=== PATIENT | male | born 1960 | race Caucasian/White ===

== ENCOUNTER 2017-11-01 09:16 | Outpatient (CLI) | payer OTHER ==
--- NOTE | 2017-11-01 15:19 | NM ---
NUCLEAR MEDICINE [facility] BRAIN SCAN: Date: 11/01/17 HISTORY: 57-year-old male with Parkinson's disease. TECHNIQUE: Pretreatment with 130 mg of potassium iodide PO. 4.4 mCi of I-123 Ioflupane injected IV. Axial SPECT images of brain obtained. FINDINGS: There is uptake in the anterior portions of the bilateral corpus striatum. There is absence of radiop harmaceutical uptake in the posterior aspects of the putamen bilaterally. IMPRESSION: Positive for Parkinson's disease. POS: PRABHJOT
== END 2017-11-01 09:17 | disposition home or self-care (01) ==
LOC: NM 09:16
PROVIDERS: ATTEND Psychiatry & Neurology Neurology
DX: G20 Parkinson's disease (principal)
CPT/HCPCS: 78607; A9584

== ENCOUNTER 2018-08-08 06:17 | Day surgery (SDC) | payer OTHER ==
[2018-08-07 13:07] VITALS: BMI 22.4
--- NOTE | 2018-08-07 17:22 | HP ---
HISTORY OF PRESENT ILLNESS: Mr. Bhardwaj is known to us for previous evaluation of severe intrascapular and posterior neck pain with tenderness over the T1 prominence. At that time, we had diagnosed him with Rafi-rail operations controller fracture and recommended excision of this fracture piece. He, at that time, then sought 2 other surgical opinions and was told that there was no surgical options for his particular issue. They also said there was no fracture identified on this scan. I again sat down today and showed him this fracture on both an MRI from [facility] that he had recently, as well as CT that we performed previously. He has reached a point now where he would like to move forward with surgery if possible. PAST MEDICAL HISTORY: Significant for hypercholesterolemia, anxiety, neuropathy, restless legs syndrome. CURRENT MEDICATIONS: 1. Cymbalta. 2. Temazepam. 3. Ropinirole. 4. Primlev. 5. Lyrica. 6. Eszopiclone. 7. Duloxetine. 8. Duexis. 9. Diazepam. 10. Carisoprodol. 11. Atorvastatin. ALLERGIES: NO KNOWN DRUG ALLERGIES. PAST SURGICAL HISTORY: Incision and drainage of infected cat bite on the hand. PHYSICAL EXAMINATION: GENERAL: The patient is alert and oriented x3. MUSCULOSKELETAL: He is using a walker with stooped posture secondary to the pain that he feels between his shoulder blades. He is tender to palpation along the direct axial spine, particularly around C7-T1, but other than that, his bilateral upper and bilateral lower extremity exams reveal full strength bilaterally and all movements of all 4 extremities. Reflexes equal and present bilaterally at the biceps and patella. ASSESSMENT: Rafi-rail operations controller fracture PLAN: Dr. Melissa met with the patient, reviewed imaging, advocated for a T1 spinous process resection. He explained to the patient the risks, benefits, and alternatives to the procedure. The patient expressed understanding and elected to move forward with surgery as discussed. I do believe the patient is mentally competent capable of making medical decisions for himself. We will move forward with surgery as planned. Job ID: [id number]
[2018-08-08] MEDS ORDERED: Bupivacaine HCl 0.5%/Epinephrine 1:200,000/PF 30 ml Vial ONE (07:32)
--- NOTE | 2018-08-08 08:55 | PRG ---
DATE OF SERVICE: 08/08/2018 Mr. Bhardwaj is a 57-year-old male evaluated in our clinic for an opinion regarding mid cervical neck pain. He has had 2 other opinions regarding his pain. He denies any pain, which radiates into the arms or which would be consistent with cervical radiculopathy. I have talked with him on the phone, but today is the first chance I have had to meet him and examine him and review with him imaging as well as diagnosis and planned procedure. He has a Rafi-Blind Hanger fracture at T1, which is evident both on his MRI scan and a CT scan that was performed. He has no other significant pathology that in my view would account for the type of pain that he has. The proposed surgical procedure today will be resection of the spinous process tip of T1 in an effort to give him relief of this area. I discussed with him the risks, benefits, and alternatives to the procedure. I answered all of their questions. He has provided an informed consent for the procedure. Job ID: [id number]
[2018-08-08] MEDS ORDERED: Fentanyl 100 MCG/2 ML VIAL ONE ×4 (08:59→11:31)
[2018-08-08] MEDS ORDERED: Lidocaine 1% PF 5 ML VIAL ONE (09:54)
[2018-08-08] MEDS ORDERED: Succinylcholine Chloride 20 MG/ML 10 ml SYRINGE FS ONE (09:54)
[2018-08-08] MEDS ORDERED: PROPOFOL 200 MG/20 ML VIAL ONE (09:54)
[2018-08-08] MEDS ORDERED: Ondansetron PF 4 MG/2 ML Vial ONE (09:54)
--- NOTE | 2018-08-08 13:01 | OP ---
DATE OF PROCEDURE: 08/08/2018 TIRE ADJUSTER: Rivera Romano PA-C INDICATION: Pain. DIAGNOSIS: Rafi-Rail Track Layer's fracture, T1. PROCEDURE PERFORMED: Resection of fracture. ANESTHESIA: General. DESCRIPTION OF PROCEDURE: The patient was brought into the operating room and placed under general anesthesia. He was flipped from a supine to prone position on the operating room table. A linear incision was planned over the T1 region. After prepping and draping and after an appropriate preoperative pause, the incision was created. The soft tissues were swept away from midline. An AP C-arm image was obtained to confirm the appropriate location. At the T1 area, there was a hypermobile component of the spinous process consistent with the patient's Rafi-Rail Track Layer's fractures identified on both MRI and CT scan. This was resected as was the pseudarthrosis material within the fracture site. The wound was irrigated. Hemostasis was maintained throughout. The wound was then closed in anatomic layers and a pressure dressing was applied. There were no known procedural complications. Job ID: [id number]
== END 2018-08-08 13:45 | disposition home or self-care (01) ==
LOC: SDC 06:17
PROVIDERS: ATTEND Neurological Surgery
PROC: 0PB40ZZ Excision of Thoracic Vertebra, Open Approach (ICD-10-PCS; principal; 2018-08-08)
DX: S22.018A Other fracture of first thoracic vertebra, initial encounter for closed fracture (principal); G25.81 Restless legs syndrome; E78.00 Pure hypercholesterolemia, unspecified; F41.9 Anxiety disorder, unspecified; G62.9 Polyneuropathy, unspecified; Z79.899 Other long term (current) drug therapy
CPT/HCPCS: 76000; J0670; J0690; J3010

== ENCOUNTER 2019-02-01 08:03 | Day surgery (SDC) | payer OTHER ==
--- NOTE | 2019-01-31 16:49 | HP ---
HISTORY OF PRESENT ILLNESS: Mr. Bhardwaj is a pleasant 58-year-old man, known to us for relatively recent resection of Rafi-dye line operator fracture and has done very, very well with this. Unfortunately now, he is presenting some with a C4 pattern of pain bilaterally that affects the right side more than the left. He has an MRI from [facility] from January of last year, which shows severe foraminal stenosis at C3-4, they consider may account for this. He did have injections therapy, medications as well as other forms of conservative treatment at home, but at this point it feels like all of it has provided no significant relief at least not lasting and would like to discuss possible surgical intervention. PAST MEDICAL HISTORY: Hypercholesterolemia, anxiety, neuropathy, restless legs syndrome. CURRENT MEDICATIONS: 1. Cymbalta. 2. Temazepam. 3. Ropinirole. 4. Primlev. 5. Lyrica. 6. Eszopiclone. 7. Duloxetine. 8. Duexis. 9. Diazepam. 10. Carisoprodol. 11. Atorvastatin. ALLERGIES: NO KNOWN DRUG ALLERGIES. PAST SURGICAL HISTORY: Incision and drainage of infected cat bite to the hand and Rafi-dye line operator fracture resection. PHYSICAL EXAMINATION: GENERAL: The patient is alert and oriented x3. NEUROLOGIC: Gait is normal. No ataxia. Upper extremity motor exam is normal. ASSESSMENT: Cervical radiculopathy. PLAN: Dr. Colmenares met with the patient, reviewed imaging, and advocated for C3-C4 ACDF. He explained to the patient the risks, benefits, and alternatives to the procedure. The patient expressed understanding and elected to move forward with surgery as discussed. I do believe the patient is mentally competent and capable of making medical decisions for himself. We will move forward with surgery as planned. Job ID: [id number]
[2019-02-01] MEDS ORDERED: Thrombin 5000 UNITS/5 ML VIAL ONE (08:39)
[2019-02-01] MEDS ORDERED: Fentanyl 100 MCG/2 ML VIAL ONE ×3 (09:20→11:22)
--- NOTE | 2019-02-01 11:44 | OP ---
DATE OF PROCEDURE: 02/01/2019 CAREER SERVICES ASSISTANT: Rivera Romano PA-C INDICATION: Pain. DIAGNOSIS: Cervical radiculopathy. PROCEDURE PERFORMED: Anterior cervical diskectomy and fusion C3-C4. ANESTHESIA: General. DESCRIPTION OF PROCEDURE: The patient was brought into the operating room and placed under general anesthesia. He was placed on the table in a supine position. A transverse incision was planned over the lateral aspect of the neck on the right. After prepping and draping and after an appropriate perioperative pause, the incision was created. The underlying platysma muscle was identified and incised. A blunt tissue plane anterior to the sternocleidomastoid muscle was used to gain access to the prevertebral space. Self-retaining retractors were placed in the wound for optimal exposure. After confirming the appropriate level with C-arm fluoroscopy, an annulotomy was performed in the C3-C4 disk space. All disk material as well as anterior and posterior osteophytes were removed. After decompressing that segment, a 6-mm lordotic PEEK cage packed with allograft and autograft material was placed within the interbody space. An anterior cervical plate was then fashioned to the front of spine and secured with a total of 4 fixed screws. Midline and lateral structures were inspected and found to be free from significant trauma. The wound was irrigated. Hemostasis was maintained throughout. The wound was then closed in anatomic layers and a pressure dressing was applied. There were no known procedural complications. Job ID: [id number]
== END 2019-02-01 14:30 | disposition home or self-care (01) ==
LOC: SDC 08:03
PROVIDERS: ATTEND Neurological Surgery
PROC: 0RT30ZZ Resection of Cervical Vertebral Disc, Open Approach (ICD-10-PCS; principal; 2019-02-01)
PROC: 0RG10A0 Fusion of Cervical Vertebral Joint with Interbody Fusion Device, Anterior Approach, Anterior Column, Open Approach (ICD-10-PCS; principal; 2019-02-01)
DX: M54.12 Radiculopathy, cervical region (principal); M48.02 Spinal stenosis, cervical region; E78.00 Pure hypercholesterolemia, unspecified; F41.9 Anxiety disorder, unspecified; G25.81 Restless legs syndrome; G62.9 Polyneuropathy, unspecified; Z79.899 Other long term (current) drug therapy; Z88.8 Allergy status to other drugs, medicaments and biological substances
CPT/HCPCS: 76000; C1713; C1776; J0690; J3010

== ENCOUNTER 2019-08-02 13:12 | Outpatient (CLI) | payer OTHER ==
--- NOTE | 2019-08-02 13:50 | RAD ---
EXAM: XR Cerv Sp Ap Lat STANDARD PROVIDED CLINICAL HISTORY: Neck pain for several years. Cervical radiculopathy. History of prior cervical spine surgery. Patient continues to have severe neck pain. COMPARISON: None FINDINGS: C1 to the C6-7 level are seen on the lateral view. The cervicothoracic junction is obscured due to ov erlying osseous structures. Vertebral body heights appear to be within normal limits. Mild degenerative changes are seen at the C5-6 and C6-7 levels with narrowing of the intervertebral disc s paces and osteophyte formation. Postoperative changes related to anterior cervical fusion are seen at the C3-4 level with anterior plate and screws transfixing this level. Intradiscal prosthesis is pr esent. No hardware complication is appreciated. Prevertebral soft tissues are within normal limits. IMPRESSION: Nonvisualization of the cervicothoracic junction. Degenerative and postoperative changes cervical spine.
== END 2019-08-02 13:13 | disposition home or self-care (01) ==
LOC: SCSRAD 13:12
PROVIDERS: ATTEND Emergency Medicine
DX: M47.22 Other spondylosis with radiculopathy, cervical region (principal); Z98.890 Other specified postprocedural states
CPT/HCPCS: 72040

== ENCOUNTER 2019-08-14 09:56 | Outpatient (CLI) | payer OTHER ==
[~2019-08-14 09:56] MED LIST: Magnevist 469MG/ML 20 ML VIAL ONE
--- NOTE | 2019-08-14 11:32 | MRI ---
CERVICAL SPINE MRI WITH AND WITHOUT CONTRAST: HISTORY: Neck pain. Cervical radiculopathy. Previous cervical fusion. Right arm pain and numbness. FINDINGS: Anterior fusion plate with transvertebral body screw at C3 and C4. Associated metallic susceptibly ar tifact. With the exception is C3 and C4, appropriate T1 marrow signal intensity of the cervical vertebrae. Cervical spine vertebral body height is maintained. No fracture. No significant STIR hyper intensity to suggest vertebral body edema or ligamentous injury. Postcontrast images do not demonstrate abnormal enhancement with regards to the vertebral bodies. Visualized brain parenchyma, cervicomedullary junction, cervical cord and the upper thoracic cord hav e a normal size and signal intensity. No abnormal enhancement. There is no abnormal T2 or STIR hyperintensity in the visualized spinal cord. No cord expansion. No c ord malacia. No enhancing lesions. C2-C3: No significant central canal stenosis or significant neural foraminal narrowing. C3-C4: No significant central canal stenosis or significant neural foraminal narrowing. C4-C5: No significant central canal stenosis or significant neural foraminal narrowing. Minimal centr al disc herniation is present. C5-C6: Broad-based disc bulge abuts the thecal sac. No significant central canal stenosis. Moderate b ilateral foraminal narrowing predominantly due to uncovertebral hypertrophy. C6-C7: Broad-based disc bulge abuts the thecal sac. No significant central canal stenosis. Mild bilat eral foraminal narrowing due to uncovertebral hypertrophy. C7-T1: No significant central canal stenosis or significant neural foraminal narrowing. IMPRESSION: 1. Cervical fusion from C3 through C4. No MR evidence of a complicating process with regards to the C 3-C4 fusion. 2. No abnormal signal intensity visualized brain parenchyma and spinal cord. No abnormal signal inten sity of the visualized osseous structures. 3. Broad-based disc bulge at C5-C6 and C6-C7, without significant central canal stenosis. 4. Moderate bilateral neural foraminal narrowing at C5-C6. Mild bilateral neural foraminal narrowing at C6-C7. Transcribed Date/Time: 08/14/2019 12:58 PM
== END 2019-08-14 09:57 | disposition home or self-care (01) ==
LOC: TBSIIMAG 09:56
PROVIDERS: ATTEND Neurological Surgery
DX: M50.122 Cervical disc disorder at C5-C6 level with radiculopathy (principal); M48.02 Spinal stenosis, cervical region; Z98.1 Arthrodesis status
CPT/HCPCS: 72156; A9579

== ENCOUNTER 2019-09-30 10:54 | Outpatient (CLI) | payer OTHER ==
[2019-10-01 13:49] LABS: SARS-CoV-2 MS2 Positive; SARS-CoV-2 N Gene Negative; SARS-CoV-2 S Gene Negative; SARS-CoV-2 orf1ab Negative
== END 2019-09-30 10:55 | disposition home or self-care (01) ==
LOC: LABBT 10:54
PROVIDERS: ATTEND Neurological Surgery
DX: Z01.812 Encounter for preprocedural laboratory examination (principal); Z11.59 Encounter for screening for other viral diseases; M54.12 Radiculopathy, cervical region
CPT/HCPCS: 87635; U0003

== ENCOUNTER 2019-10-02 07:11 | Day surgery (SDC) | payer OTHER ==
--- NOTE | 2019-10-01 15:47 | HP ---
HISTORY OF PRESENT ILLNESS: Mr. Bhardwaj is known to us for 2 prior neck surgeries, 1 being the excision of the spinous process fracture and the other being ACDF. He returns now with recurrent symptoms of what he describes as a cramping neck and shoulder discomfort, that seems to best fit a C5 radiculopathy. This is potentially adjacent to his prior ACDF, which was at C3-C4. A new MRI reveals likely significant foraminal stenosis at C4-C5 adjacent to level immediately caudal to his prior ACDF at C3-C4, likely in place of current symptoms. He has treated this in the past with injections with a little help and hopes to move forward more with surgical intervention given his success in the past. PAST MEDICAL HISTORY: Significant for: 1. Hypercholesterolemia. 2. Anxiety. 3. Neuropathy. 4. Restless legs syndrome. 5. Neck pain. CURRENT MEDICATIONS: 1. Cymbalta. 2. Temazepam. 3. Ropinirole. 4. Primlev. 5. Lyrica. 6. Eszopiclone. 7. Duloxetine. 8. Duexis. 9. Diazepam. 10. Carisoprodol. 11. Atorvastatin. ALLERGIES: NO KNOWN DRUG ALLERGIES. PAST SURGICAL HISTORY: 1. Incision and drainage of cat bite in the hand. 2. Rafi-industrial plant custodian fracture excision. 3. ACDF. PHYSICAL EXAMINATION: Deferred for COVID-19, telehealth visit. ASSESSMENT: Cervical radiculopathy. PLAN: Dr. Melissa met with the patient, reviewed imaging, and advocated for exploration of fusion, reoperation, removal of hardware from C3-C4 with extension to C4-C5 and ACDF there. He explained to the patient risks, benefits, of alternatives to the procedure. The patient expressed understanding and elected to move forward with surgery as discussed. I do believe that the patient is mentally competent and capable of making medical decisions for himself. We will move forward with surgery as planned. Job ID: [id number]
[2019-10-02] MEDS ORDERED: Thrombin 5000 UNITS/5 ML VIAL ONE (09:34)
[2019-10-02] MEDS ORDERED: Fentanyl 100 MCG/2 ML VIAL ONE ×4 (09:45→11:57)
[2019-10-02] MEDS ORDERED: Lidocaine 1% PF 5 ML VIAL ONE (11:21)
[2019-10-02] MEDS ORDERED: EPHEDRINE 25 MG/5 ML SYRINGE ONE (11:21)
[2019-10-02] MEDS ORDERED: Rocuronium Bromide 10 MG/ML (10ML VIAL) ONE (11:21)
[2019-10-02] MEDS ORDERED: Glycopyrrolate 0.2 MG/ML 5 ML SYRINGE ONE (11:21)
[2019-10-02] MEDS ORDERED: Atropine Sulfate 0.4 mg/1 ml Vial ONE (11:21)
[2019-10-02] MEDS ORDERED: PROPOFOL 200 MG/20 ML VIAL ONE (11:21)
[2019-10-02] MEDS ORDERED: PHENYLEPHRINE-NS 100 MCG/ML 10 ML SYRINGE ONE (11:21)
[2019-10-02] MEDS ORDERED: Dexamethasone 20 MG/5 ML VIAL ONE (11:21)
[2019-10-02] MEDS ORDERED: Ondansetron PF 4 MG/2 ML Vial ONE (11:21)
[2019-10-02] MEDS ORDERED: HYDROcodone/Acetaminophen 5/325 mg Tablet ONE (11:44)
[2019-10-02] MEDS ORDERED: Tamsulosin HCl 0.4 MG CAP ONE (11:45)
[2019-10-02] MEDS ORDERED: tiZANidine HCl 4 MG TAB ONE (12:13)
[2019-10-02] MEDS ORDERED: Cyclobenzaprine 10 MG TAB ONE (12:15)
[2019-10-02] MEDS ORDERED: Morphine 4 MG/ML VIAL ONE (12:37)
--- NOTE | 2019-10-03 13:33 | OP ---
DATE OF PROCEDURE: 10/02/2019 X RAY SERVICE TECHNICIAN: Rivera Romano PA-C INDICATION: Pain. DIAGNOSES: Cervical radiculopathy, adjacent segment disease with C5 radiculopathy. PROCEDURES PERFORMED: Reoperation, exploration of fusion at C3-C4, removal of hardware at C3-C4, anterior cervical diskectomy at C4-C5, placement of allograft, and placement of autograft. ANESTHESIA: General. DESCRIPTION OF PROCEDURE: The patient was brought into the operating room and placed under general anesthesia. He was placed on table in supine position. A transverse incision was planned over the lateral aspect of the neck on the right. After prepping and draping and after an appropriate preoperative pause, the incision was created. The underlying platysma muscle was identified and incised. A blunt tissue plane anterior to the sternocleidomastoid muscle was used to gain access to the prevertebral space. Self-retaining retractors were placed in the wound for optimal exposure. After confirming the appropriate level at C4-C5, an annulotomy was performed and all disk material as well as anterior and posterior osteophytes removed until there was complete decompression of the exiting nerve roots and underlying thecal sac. After completing the decompression, a 7-mm lordotic PEEK cage packed with allograft and autograft material was placed into the interbody space. We then redirected our attention level above, where an ectopic bone was removed as well as the anterior cervical plate as well as four screws that were spanning C3-C4. After removal of that hardware, a new plate was placed at C4-C5, four fixed screws were placed. The C-arm images were obtained to confirm the appropriate location of hardware. Midline and lateral structures were inspected and found to be free from significant trauma. The wound was irrigated. Hemostasis was maintained throughout. The wound was then closed in anatomic layers and a pressure dressing was applied. There were no known procedural complications. Job ID: [id number]
== END 2019-10-02 15:55 | disposition home or self-care (01) ==
LOC: SDC 07:11 → EDSTATUS 14:47 → SDC 15:55
PROVIDERS: ATTEND Neurological Surgery
PROC: 0RG10A0 Fusion of Cervical Vertebral Joint with Interbody Fusion Device, Anterior Approach, Anterior Column, Open Approach (ICD-10-PCS; principal; 2019-10-02)
PROC: 0RT30ZZ Resection of Cervical Vertebral Disc, Open Approach (ICD-10-PCS; principal; 2019-10-02)
PROC: 0PP30JZ Removal of Synthetic Substitute from Cervical Vertebra, Open Approach (ICD-10-PCS; principal; 2019-10-02)
DX: M54.12 Radiculopathy, cervical region (principal); E78.00 Pure hypercholesterolemia, unspecified; F41.9 Anxiety disorder, unspecified; G62.9 Polyneuropathy, unspecified; G25.81 Restless legs syndrome; Z79.899 Other long term (current) drug therapy; Z88.8 Allergy status to other drugs, medicaments and biological substances; Z98.1 Arthrodesis status; Z98.890 Other specified postprocedural states
CPT/HCPCS: 76000; C1776; J0461; J0690; J1100; J2001; J2270; J2405; J2704; J3010

== ENCOUNTER 2020-01-27 10:24 | Outpatient (CLI) | payer OTHER ==
[2020-01-27] MEDS ORDERED: Iopamidol-370 76% 500 ML 1 ML ONE (10:54)
--- NOTE | 2020-01-27 11:57 | CT ---
CTA CHEST: Date: 01/27/2020 Axial tomograms obtained following an angio protocol with multiplanar reconstruction and 3D postproce ssing. Thoracic aortogram protocol followed. INDICATION: Question thoracic aortic aneurysm from outside ultrasound. FINDINGS: Mild aneurysmal dilatation of ascending aorta with diameter measured at approximately 3.5 cm. The diameter at the root of sinus of Valsalva is measured at 4.2 cm, which is upper normal for a male patient. The sinotubular diameter is measured at 2.8 cm, which is within normal range. The upper descending thoracic aorta is measured at 2.2 cm, which is upper normal. The lower descending thoracic aorta is measured at 2.1 cm, which is within normal range. No evidence of thoracic aortic dissection. Mediastinum unremarkable with no evidence of adenopathy. Proximal pulmonary arteries are opacified wi th no evidence of proximal pulmonary embolus in either main pulmonary artery. The lungs show mild chronic lung parenchymal change. There is mild interstitial thickening bilaterall y. Stranding in the lung bases suggests atelectasis. No effusion. The thoracic vertebra maintain height and alignment with mild degenerative changes seen. IMPRESSION: Mild aneurysmal dilatation of ascending aorta. Thoracic aortic measurements are given above. POS: SAM
== END 2020-01-27 10:25 | disposition home or self-care (01) ==
LOC: BICCT 10:24
PROVIDERS: ATTEND Internal Medicine Cardiovascular Disease
DX: I77.9 Disorder of arteries and arterioles, unspecified (principal); I77.810 Thoracic aortic ectasia
CPT/HCPCS: 71275; 82565; Q9967